=== PATIENT | male | born 1965 ===

== ENCOUNTER 2021-03-29 12:45 | Outpatient (REF) | payer OTHER, SELFPAY ==
--- NOTE | ~2021-03-29 | XR_ITS ---
EXAMINATION: XR HAND, RIGHT CLINICAL INFORMATION: Right hand pain. COMPARISON: None TECHNIQUE: PA, lateral, and oblique views of the right hand. FINDINGS: No acute fracture or dislocation. Mild joint space narrowing with tiny marginal osteophytes at the first metacarpophalangeal joint. No osseous erosion. No abnormal soft tissue calcification. 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
== END 2021-03-29 12:46 | disposition home or self-care (01) ==
LOC: HO.HOSX 12:45
PROVIDERS: Visit Provider Physician Assistant
DX: S61.011D Laceration without foreign body of right thumb without damage to nail, subsequent encounter (principal)
CPT/HCPCS: 73130